=== PATIENT | male | born 1940 | race Caucasian/White ===

== ENCOUNTER 2023-03-03 10:04 | Inpatient (IN) ==
--- NOTE | 2023-03-03 10:07 | DR.DIZZY ---
HPI Time seen Time Seen by Provider: 03/03/23 10:07 HPI Comment HPI Comment: 83 y/o lives him alone found on the floor by son this am; says he fell while going to bathroom and was unable to get up; ems had to come and help him up; he denies pain anywhere; has a lot of dried blood on tongue and around mouth but denies biting tongue and says he pulled scabs off dried lips which caused bleeding; grandson says pt fell against microwave last week and scraped rt forearm; he has not fallen prior to that and generally does well at home alone Context Stroke Symptoms: Weakness of limb PMH PMH Past Medical History: Diabetes Past Surgical History: Yes Surgical History: Ortho Surgery Social History Do you use any recreational Drugs:: No ROS Review of Systems Constitutional: No Symptoms Reported Eyes: No Symptoms Reported ENTM: No Symptoms Reported Respiratoy: No Symptoms Reported Cardiovascular: No Symptoms Reported Gastrointestinal/Abdominal: No Symptoms Reported Genitourinary: No Symptoms Reported Neurological: No Symptoms Reported Musculoskeletal: See HPI Integumentary: See HPI Hematologic/Lymphatic: No Symptoms Reported Endocrine: No Symptoms Reported Psychiatric: No Symptoms Reported PE Vital Signs Vitals: Vital Signs Temperature 98.1 F Pulse Rate 71 Pulse Rate 74 Pulse Rate 74 Pulse Rate 71 Pulse Rate 66 Pulse Rate 73 Pulse Rate 72 Pulse Rate 74 Pulse Rate 74 Pulse Rate 72 Pulse Rate 70 Pulse Rate 74 Pulse Rate 72 Pulse Rate 77 Pulse Rate 75 Pulse Rate 70 Pulse Rate 75 Pulse Rate 78 Pulse Rate 78 Pulse Rate 79 Respiratory Rate 22 Respiratory Rate 23 Respiratory Rate 26 Respiratory Rate 22 Respiratory Rate 17 Respiratory Rate 20 Respiratory Rate 22 Respiratory Rate 26 Respiratory Rate 23 Respiratory Rate 19 Respiratory Rate 30 Respiratory Rate 22 Respiratory Rate 20 Respiratory Rate 25 Respiratory Rate 32 Respiratory Rate 22 Respiratory Rate 44 Respiratory Rate 21 Respiratory Rate 25 Respiratory Rate 18 Blood Pressure 163/79 Blood Pressure 160/84 Blood Pressure 160/80 Blood Pressure 179/104 Blood Pressure 147/86 Blood Pressure 162/86 Blood Pressure 161/87 Blood Pressure 145/82 Blood Pressure 149/86 Blood Pressure 147/81 O2 Sat by Pulse Oximetry 97 O2 Sat by Pulse Oximetry 96 O2 Sat by Pulse Oximetry 97 O2 Sat by Pulse Oximetry 97 O2 Sat by Pulse Oximetry 95 O2 Sat by Pulse Oximetry 95 O2 Sat by Pulse Oximetry 100 O2 Sat by Pulse Oximetry 98 O2 Sat by Pulse Oximetry 99 O2 Sat by Pulse Oximetry 99 O2 Sat by Pulse Oximetry 99 O2 Sat by Pulse Oximetry 97 O2 Sat by Pulse Oximetry 97 O2 Sat by Pulse Oximetry 97 O2 Sat by Pulse Oximetry 98 O2 Sat by Pulse Oximetry 97 O2 Sat by Pulse Oximetry 97 O2 Sat by Pulse Oximetry 96 O2 Sat by Pulse Oximetry 98 03/03/23 11:15 03/03/23 11:30 03/03/23 11:30 Pulse Rate 75 77 Respiratory Rate 32 H 25 H O2 Sat by Pulse Oximetry 98 97 Blood Pressure 162/86 Blood Pressure Mean 115 03/03/23 11:45 03/03/23 12:00 03/03/23 12:00 Pulse Rate 72 74 Respiratory Rate 20 22 O2 Sat by Pulse Oximetry 97 97 Blood Pressure 147/86 Blood Pressure Mean 110 03/03/23 12:15 03/03/23 12:30 03/03/23 12:31 Pulse Rate 70 72 Respiratory Rate 30 H 19 O2 Sat by Pulse Oximetry 99 99 Blood Pressure 179/104 Blood Pressure Mean 135 03/03/23 12:31 03/03/23 12:45 03/03/23 12:52 Pulse Rate 74 74 Respiratory Rate 23 26 H O2 Sat by Pulse Oximetry 99 98 Blood Pressure 160/80 Blood Pressure Mean 114 03/03/23 12:52 03/03/23 13:00 03/03/23 13:00 Pulse Rate 72 73 Respiratory Rate 22 20 O2 Sat by Pulse Oximetry 100 95 Blood Pressure 160/84 Blood Pressure Mean 116 03/03/23 13:15 03/03/23 13:30 03/03/23 13:45 Pulse Rate 66 71 74 Respiratory Rate 17 22 26 H O2 Sat by Pulse Oximetry 95 97 97 Blood Pressure Blood Pressure Mean 03/03/23 14:00 03/03/23 14:00 03/03/23 14:15 Pulse Rate 74 71 Respiratory Rate 23 22 O2 Sat by Pulse Oximetry 96 97 Blood Pressure 163/79 Blood Pressure Mean 113 General Limitations: No Limitations General Appearance: Alert and In No Apparent Distress Head Head Exam: Normal Inspection Eyes Eye exam: Normal Appearance ENT ENT Exam: Normal Exam, Normal Oropharynx and Normal External Ear Exam Neck Neck Exam: Normal Inspection and Full ROM Chest Chest Inspection: Normal Inspection, Symmetric Chest Wall Rise and Other (tender lt lateral chest wall, no crepitus or bruising) Respiratory Respiratory Exam: Normal Lung Sounds Bilat Cardiovascular Cardiovascular Exam: Regular Rate and Normal Rhythm Abdominal Exam Abdominal Exam: Normal Inspection, Normal Bowel Sounds and Soft Rectal Rectal Exam: Deferred Extremeties Extremities Exam: Normal Inspection and Full ROM Back Back Exam: Normal Inspection and Full ROM Neurologic Neurological Exam: Alert and Oriented X3 Psychiatric Psychiatric Exam: Normal Affect and Normal Mood Skin Skin Exam: Warm and Other (slight avulsion to behind tip rt ear with mild bleeding, bloody tongue and lips (dried)) COURSE Consultation Call Returned: 15:00 (Dr Pacheco accepts admission.) ROR Labs Reviewed Laboratory Results Reviewed?: Yes Result Diagrams: 03/03/23 10:03/03/23 10: Laboratory: WBC 5.6 X10^3/uL (3.6-10.0) 03/03/23 10: RBC 3.39 X10^6/uL (4.7-6.0) L 03/03/23 10: Hgb 9.9 g/dL (13.5-18.0) L 03/03/23 10: Hct 28.8 % (42.0-54.0) L 03/03/23 10: MCV 85.0 fL (80.0-100.0) 03/03/23 10: MCH 29.2 pg (27.0-34.0) 03/03/23 10: MCHC 34.4 g/dL (33.0-35.0) 03/03/23 10: RDW 13.9 % (11.6-16.5) 03/03/23 10: Plt Count 240 X10^3/uL (150.0-450.0) 03/03/23 10: MPV 8.0 fL (7.4-11.0) 03/03/23 10: Neut % (Auto) 79.7 % (42.0-75.0) H 03/03/23 10: Lymph % (Auto) 11.9 % (21.0-51.0) L 03/03/23 10: [place] % (Auto) 7.9 % (0.0-13.0) 03/03/23 10: Eos % (Auto) 0.4 % (0.9-2.9) L 03/03/23 10: Baso % (Auto) 0.1 % (0.2-1.0) L 03/03/23 10:27 Neut # (Auto) 4.4 x10^3/uL (2.2-4.8) 03/03/23 10:27 Lymph # (Auto) 0.7 X10^3/uL (1.3-2.9) L 03/03/23 10:27 [place] # (Auto) 0.4 x10^3/uL (0.3-0.8) 03/03/23 10:27 Eos # (Auto) 0.0 x10^3/uL (0.0-0.2) 03/03/23 10:27 Baso # (Auto) 0.0 X10^3/uL (0.0-0.1) 03/03/23 10:27 Absolute Nucleated RBC 0.1 /100WBC 03/03/23 10:27 PT > 100 SECONDS (11.8-14.3) 03/03/23 10:27 INR Target Range - 03/03/23 10:27 INR > 10 (0.8-1.3) H* 03/03/23 10:27 Sodium 139 mmol/L (136-145) 03/03/23 10:27 Corrected Sodium 142 mmol/L (136-145) 03/03/23 10:27 Potassium 4.3 mmol/L (3.5-5.1) 03/03/23 10: Chloride 103 mmol/L (98-107) 03/03/23 10:27 Carbon Dioxide 27.1 mmol/L (21-32) 03/03/23 10:27 BUN 52 mg/dL (7-18) H 03/03/23 10:27 Creatinine 2.44 mg/dL (0.70-1.30) H 03/03/23 10:27 Est GFR (MDRD) Af Amer 33 (>60) L 03/03/23 10:27 Est GFR (MDRD) Non-Af 27 (>60) L 03/03/23 10:27 Glucose 237 mg/dL (65-99) H 03/03/23 10:27 Calcium 8.2 mg/dL (8.5-10.1) L 03/03/23 10:27 Corrected Calcium TNP 03/03/23 10:27 Magnesium 2.2 mg/dL (2.0-2.9) 03/03/23 10:27 Total Bilirubin 0.90 mg/dL (0.2-1.0) 03/03/23 10:27 AST 25 Units/L (15-37) 03/03/23 10:27 ALT 26 Units/L (12-78) 03/03/23 10:27 Alkaline Phosphatase 71 Units/L (46-116) 03/03/23 10:27 Creatine Kinase 312 Units/L (39-308) H 03/03/23 10:27 Total Protein 6.7 g/dL (6.4-8.2) 03/03/23 10: Albumin 3.6 g/dL (3.4-5.0) 03/03/23 10: Globulin 3.1 g/dL (2.5-4.5) 03/03/23 10: Albumin/Globulin Ratio 1.2 Ratio (1.1-2.1) 03/03/23 10:27 Specimen Type Clean catch urine 03/03/23 12:10 Urine Color Pale yellow (YELLOW) 03/03/23 12:10 Urine Appearance Slightly hazy (CLEAR) 03/03/23 12:10 Urine pH 5.0 (5.0 - 8.0) 03/03/23 12:10 Ur Specific [place] 1.020 (1.000-1.030) 03/03/23 12:10 Urine Protein 1+ (NEGATIVE) 03/03/23 12:10 Urine Glucose (UA) Negative (NEGATIVE) 03/03/23 12:10 Urine Ketones 1+ (NEGATIVE) 03/03/23 12:10 Urine Blood 4+ (NEGATIVE) 03/03/23 12:10 Urine Nitrite Negative (NEGATIVE) 03/03/23 12:10 Urine Bilirubin Negative (NEGATIVE) 03/03/23 12:10 Urine Urobilinogen Normal (NORMAL) 03/03/23 12:10 Ur Leukocyte Esterase 2+ (NEGATIVE) 03/03/23 12:10 Urine RBC None seen /HPF (0-3) 03/03/23 12:10 Urine WBC 0-2 /HPF (0-5) 03/03/23 12:10 Ur Squamous Epith Cells Rare /HPF (NEGATIVE) 03/03/23 12:10 Urine Bacteria 2+ /HPF (NEGATIVE) 03/03/23 12:10 Ur Culture Indicated? Yes/culture set up 03/03/23 12:10 Other Results Comments: Coumadin toxicity, falls, cystitis XRAY XRAY Interpreted by: Radiologist X-ray Results: hip xr: 1. Left hip osteoarthrosis. 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 An acute injury is not identified although there is no previous image available to confirm stability of the described findings. pcxr: No acute chest findings. lumbar xr: Fracture T12 vertebra age undetermined. No acute findings identified involving the lumbar vertebrae. Opioid Opioid Risk Tool Age ([place]ucho box if 16-45): No History of Preadolescent Sexual Abuse: No Total: 0 Total Score Risk Category: Low Risk Copyright: Ricardo LOW predicting aberrant behaviors Discharge Plan Diagnosis Discharge Problem: Cystitis, Recurrent falls Coumadin toxicity Qualifiers: Encounter type: initial encounter Injury intent: accidental or unintentional Qualified Code(s): T45.511A - Poisoning by anticoagulants, accidental (unintentional), initial encounter CRF (chronic renal failure) Qualifiers: Chronic kidney disease stage: stage 3 (moderate) Chronic kidney disease stage 3 subtype: stage 3b (GFR 30-44) Qualified Code(s): N18.32 - Chronic kidney disease, stage 3b Discharge Plan Patient Disposition: ADMITTED INPATIENT Condition: Stable Prescriptions: No Action cetirizine 10 mg tablet 1 tab PO QPM lisinopril-hydrochlorothiazide 20-12.5 mg tablet 1 tab PO BID atenolol 25 mg tablet 0.5 tab PO BID amitriptyline 50 mg tablet 1 tab PO QPM levothyroxine 25 mcg tablet 1 tab PO QAM warfarin 5 mg tablet 5 mg PO DIRECTED Rx Instructions: Pt states he takes 5 mg dose on Saturday, Saturday, Saturday and Saturday montelukast 10 mg tablet 1 tab PO QDAY metformin 500 mg tablet extended release 24 hr See Rx Instructions .ROUTE .COMPLEX Rx Instructions: TAKE 2 TABLETS BY MOUTH IN THE MORNING AND 1 TABLET IN THE AFTERNOON fenofibrate nanocrystallized 145 mg tablet 1 tab PO QPM warfarin 2.5 mg Tablet 2.5 mg PO DIRECTED Rx Instructions: Pt states he takes 2.5 mg on Saturday, Saturday and Health Concerns: Post Hospitalization: new medications and changes needed to prevent readmission or further decline. Pt educated and given instructions on all concerns. Plan of Treatment: Continue with present treatment and follow up plan. Pt is to keep follow up appointment as instructed and take medications as ordered. Follow ups/Referrals Follow ups/Referrals: CHAZ JIANG [Primary Care Provider] - 3 days Instructions Instructions: Urinary Tract Infection, Adult, [id number]
[2023-03-03 10:38] VITALS: BMI 26.6
[2023-03-03 10:48] LABS: BASOPHILS % (AUTO) 0.1 % (0.2-1.0); EOSINOPHILS % (AUTO) 0.4 % (0.9-2.9); HEMATOCRIT 28.8 % (42.0-54.0); HEMOGLOBIN 9.9 g/dL (13.5-18.0); LYMPHOCYTES # (AUTO) 0.7 X10^3/uL (1.3-2.9); LYMPHOCYTES % (AUTO) 11.9 % (21.0-51.0); MEAN CORPUSCULAR HEMOGLOBIN 29.2 pg (27.0-34.0); MEAN CORPUSCULAR HGB CONC 34.4 g/dL (33.0-35.0); MONOCYTES # (AUTO) 0.4 x10^3/uL (0.3-0.8); MONOCYTES % (AUTO) 7.9 % (0.0-13.0); NEUTROPHILS # (AUTO) 4.4 x10^3/uL (2.2-4.8); NEUTROPHILS % (AUTO) 79.7 % (42.0-75.0); PLATELET COUNT 240 X10^3/uL (150.0-450.0); RED BLOOD COUNT 3.39 X10^6/uL (4.7-6.0); RED CELL DISTRIBUTION WIDTH 13.9 % (11.6-16.5); WHITE BLOOD COUNT 5.6 X10^3/uL (3.6-10.0)
[2023-03-03 10:58] LABS: ALANINE AMINOTRANSFERASE 26 Units/L (12-78); ALBUMIN 3.6 g/dL (3.4-5.0); ALKALINE PHOSPHATASE 71 Units/L (46-116); ASPARTATE AMINO TRANSFERASE 25 Units/L (15-37); BLOOD UREA NITROGEN 52 mg/dL (7-18); CALCIUM 8.2 mg/dL (8.5-10.1); CARBON DIOXIDE 27.1 mmol/L (21-32); CHLORIDE 103 mmol/L (98-107); COR NA(FOR HYPERGLY) 142 mmol/L (136-145); CREATINE KINASE 312 Units/L (39-308); CREATININE 2.44 mg/dL (0.70-1.30); GLUCOSE 237 mg/dL (65-99); MAGNESIUM 2.2 mg/dL (2.0-2.9); POTASSIUM 4.3 mmol/L (3.5-5.1); SODIUM 139 mmol/L (136-145); TOTAL PROTEIN 6.7 g/dL (6.4-8.2); eGFR NON BLACK RACES 27 (>60)
[2023-03-03 12:16] LABS: BILIRUBIN,URINE NEGATIVE (NEGATIVE); BLOOD/HEMOGLOBIN,URINE 4+ (NEGATIVE); GLUCOSE, URINE NEGATIVE (NEGATIVE); KETONES,URINE 1+ (NEGATIVE); LEUKOCYTE ESTERASE ,URINE 2+ (NEGATIVE); NITRITES,URINE NEGATIVE (NEGATIVE); PROTEIN,URINE 1+ (NEGATIVE); UROBILINOGEN,URINE NORMAL (NORMAL)
[2023-03-03 12:24] LABS: APPEARANCE,URINE SLIGHTLY HAZY (CLEAR); COLOR,URINE PALE YELLOW (YELLOW)
[2023-03-03 12:25] LABS: BACTERIA,URINE 2+ /HPF (NEGATIVE); RBC,URINE NONE SEEN /HPF (0-3); SQUAMOUS EPITHELIAL CELL,UR RARE /HPF (NEGATIVE)
[2023-03-03 12:57] LABS: INR > 10 (0.8-1.3)
[2023-03-03] MEDS ORDERED: MEPHYTON PO ONE (12:58)
[2023-03-03] MEDS ORDERED: ROCEPHIN VIAL 1 GRAM 1 G in NS 100 ML IV 100 ML IV SCH (13:01)
[2023-03-03] MEDS ORDERED: ROCEPHIN VIAL 1 GRAM ONE (13:08)
[2023-03-03] MEDS ORDERED: NS 100 ML IV 100 ML ONE (13:08)
--- NOTE | 2023-03-03 14:26 | RAD ---
HISTORYFellSTUDYPA chestCOMPARISONNoneFINDINGSHeart size normal with clear lungs well inflated. There is no infiltrate, pneumothorax or pleural fluid.IMPRESSIONNo acute chest findings.Electronically signed by: RIGO HURT (Mar 03, 2023 14:26:15)
--- NOTE | 2023-03-03 14:28 | RAD ---
HISTORYFellSTUDYLumbar spine three viewsCOMPARISONNoneFINDINGSModerate osteopenia. Compression fracture deformity of T12 vertebra without bone destruction or displacement. The lumbar segments are relatively normal without evidence for recent injury, or osteolytic involvement.IMPRESSIONFracture T12 vertebra age undetermined. No acute findings identified involving the lumbar vertebrae.Electronically signed by: RIGO HURT (Mar 03, 2023 14:27:51)
--- NOTE | 2023-03-03 14:31 | RAD ---
HISTORYFellSTUDYBilateral hips five viewsCOMPARISONNoneFINDINGSLeft hip: Concentric narrowing joint space without evidence for fracture, dislocation or femoral head deformity.Right hip: Arthroplasty components are present with additional surgical screw-plate fixation hardware in the acetabulum and right hemipelvis. Nonacute bony fragmentation and heterotopic bone are noted around the joint. No recent fracture is identified.IMPRESSION1. Left hip osteoarthrosis.2. 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 An acute injury is not identified although there is no previous image available to confirm stability of the described findings.Electronically signed by: RIGO HURT (Mar 03, 2023 14:30:08)
[2023-03-03] MEDS: ROCEPHIN VIAL 1 GRAM 1 G in NS 100 ML IV 100 ML IV SCH (15:01)
[2023-03-03] MEDS ORDERED: NS 1,000 ML IV 1,000 ML ONE (15:16)
[2023-03-03] MEDS: NS 1,000 ML IV 1,000 ML IV SCH (15:20)
[2023-03-03] MEDS: NovoLIN R (or HumuLIN R) SUBCUT PRN (18:09)
[2023-03-03] MEDS: SNACK - Diabetic Appropriate PO SCH (20:38)
[2023-03-04 05:23] LABS: BASOPHILS % (AUTO) 0.2 % (0.2-1.0); HEMATOCRIT 20.8 % (42.0-54.0); LYMPHOCYTES # (AUTO) 1.1 X10^3/uL (1.3-2.9); LYMPHOCYTES % (AUTO) 16.2 % (21.0-51.0); MEAN CORPUSCULAR HEMOGLOBIN 29.7 pg (27.0-34.0); MEAN CORPUSCULAR HGB CONC 35.1 g/dL (33.0-35.0); MEAN CORPUSCULAR VOLUME 84.6 fL (80.0-100.0); MEAN PLATELET VOLUME 8.2 fL (7.4-11.0); MONOCYTES # (AUTO) 0.5 x10^3/uL (0.3-0.8); MONOCYTES % (AUTO) 8.3 % (0.0-13.0); NEUTROPHILS % (AUTO) 75.3 % (42.0-75.0); PLATELET COUNT 261 X10^3/uL (150.0-450.0); RED BLOOD COUNT 2.46 X10^6/uL (4.7-6.0); RED CELL DISTRIBUTION WIDTH 14.4 % (11.6-16.5); WHITE BLOOD COUNT 6.6 X10^3/uL (3.6-10.0)
[2023-03-04 05:28] LABS: HEMOGLOBIN 7.3 g/dL (13.5-18.0)
[2023-03-04 05:42] LABS: ALBUMIN 2.8 g/dL (3.4-5.0); CALCIUM 7.8 mg/dL (8.5-10.1); CARBON DIOXIDE 23.7 mmol/L (21-32); COR CA(FOR HYPOALB) 8.8 mg/dL (8.5-10.1); CREATININE 2.28 mg/dL (0.70-1.30); POTASSIUM 4.4 mmol/L (3.5-5.1); TOTAL PROTEIN 5.5 g/dL (6.4-8.2)
[2023-03-04] MEDS: NS 1,000 ML IV 1,000 ML IV SCH ×2 (06:05→18:32)
[2023-03-04 06:21] LABS: INR > 10 (0.8-1.3)
--- NOTE | 2023-03-04 06:25 | RAD ---
HISTORYFall, right elbow swellingSTUDYRight elbow three viewsCOMPARISONNoneFINDINGSThere is no evidence for fracture, lytic, or blastic lesion. No joint erosion or joint effusion is identified. No periarticular soft tissue swelling identified.IMPRESSIONNo significant abnormality identifiedElectronically signed by: SHELIA VERDE (Mar 04, 2023 06:24:14)
[2023-03-04] MEDS ORDERED: AQUA-MEPHYTON ADULT INJ SC ONE (08:10)
[2023-03-04] MEDS: ROCEPHIN VIAL 1 GRAM 1 G in NS 100 ML IV 100 ML IV SCH (08:48)
[2023-03-04] MEDS: NovoLIN R (or HumuLIN R) SUBCUT PRN ×3 (11:37→22:06)
--- NOTE | 2023-03-04 14:35 | DR.H&P ---
H&P History & Physical for Day of: H&P Date: 03/04/23 Chief Complaint Chief Complaint: Falling Allergies Allergies Allergy/AdvReac Type Severity Reaction Status Date / Time No Known Drug Allergies Allergy Verified 05/05/19 11:26 History of Present Illness History of Present Illness: And again to emergency department they checked his INR and it was greater than 10 and he received 5 mg of AquaMEPHYTON. This is a pleasant 83-year-old white male who is brought to the emergency department yesterday after his family found him at home floor. They report he has been falling a lot lately and also takes Coumadin and has multiple bruises all over him at this time. Patient does not know why he is taking Coumadin. However he does report a history of blood clots in his lower extremities. X-rays were also done of his left hip that showed left hip osteoarthrosis and history of left hip replacement. There was no acute injury. Lumbar x-ray was also taken and showed a fracture of T12 vertebra age undetermined though. There were no acute findings identified involving the lumbar vertebra. Patient also has history of stage III chronic kidney disease as well. I discussed the patient's welfare at home and explained to the daughter that he is high risk because of his falling for intracranial bleed or breaking a hip. She understands this and we were able to talk him into [facility] and we will get started on that once we get his INR therapeutic and make sure his hemoglobin is stable since that has trended down since coming in yesterday. We also found the patient had a UTI when he was started on Rocephin as well. Past Medical History Past Medical History: Diabetes Past Surgical History Surgical History: Ortho Surgery Social History Does patient currently use any type of tobacco product: No Have you used tobacco products in the last 12 months: No Type of Tobacco Use: None Does any household member use tobacco: No Alcohol Use: None Drug Use: None Medications Home Medications: Home Medications Medication Instructions Recorded Confirmed Type amitriptyline 50 mg tablet 1 tab PO QPM 03/03/23 03/03/23 History atenolol 25 mg tablet 0.5 tab PO BID 03/03/23 03/03/23 History cetirizine 10 mg tablet 1 tab PO QPM 03/03/23 03/03/23 History fenofibrate nanocrystallized 145 1 tab PO QPM 03/03/23 03/03/23 History mg tablet levothyroxine 25 mcg tablet 1 tab PO QAM disorder of thyroid 03/03/23 03/03/23 History gland lisinopril 20 1 tab PO BID 03/03/23 03/03/23 History mg-hydrochlorothiazide 12.5 mg tablet metformin 500 mg tablet,extended 1,000 mg PO DAILY 03/03/23 03/03/23 History release 24 hr metformin 500 mg tablet,extended 500 mg PO HS 03/03/23 03/03/23 History release 24 hr montelukast 10 mg tablet 1 tab PO QDAY 03/03/23 03/03/23 History warfarin 2.5 mg tablet 2.5 mg PO DIRECTED 03/03/23 03/03/23 History warfarin 5 mg tablet 5 mg PO DAILY 03/03/23 03/03/23 History Labs Result Diagrams: 03/04/23 04:58 03/04/23 04:58 Labs: 03/03/23 12:10 Urine,Catheterized Urine Culture - Preliminary Laboratory WBC 6.6 X10^3/uL (3.6-10.0) 03/04/23 04:58 RBC 2.46 X10^6/uL (4.7-6.0) L 03/04/23 04:58 Hgb 7.3 g/dL (13.5-18.0) L D 03/04/23 04:58 Hct 20.8 % (42.0-54.0) L 03/04/23 04:58 MCV 84.6 fL (80.0-100.0) 03/04/23 04:58 MCH 29.7 pg (27.0-34.0) 03/04/23 04:58 MCHC 35.1 g/dL (33.0-35.0) H 03/04/23 04:58 RDW 14.4 % (11.6-16.5) 03/04/23 04:58 Plt Count 261 X10^3/uL (150.0-450.0) 03/04/23 04:58 MPV 8.2 fL (7.4-11.0) 03/04/23 04:58 Neut % (Auto) 75.3 % (42.0-75.0) H 03/04/23 04:58 Lymph % (Auto) 16.2 % (21.0-51.0) L 03/04/23 04:58 [place] % (Auto) 8.3 % (0.0-13.0) 03/04/23 04:58 Eos % (Auto) 0.0 % (0.9-2.9) L 03/04/23 04:58 Baso % (Auto) 0.2 % (0.2-1.0) 03/04/23 04:58 Neut # (Auto) 5.0 x10^3/uL (2.2-4.8) H 03/04/23 04:58 Lymph # (Auto) 1.1 X10^3/uL (1.3-2.9) L 03/04/23 04:58 [place] # (Auto) 0.5 x10^3/uL (0.3-0.8) 03/04/23 04:58 Eos # (Auto) 0.0 x10^3/uL (0.0-0.2) 03/04/23 04:58 Baso # (Auto) 0.0 X10^3/uL (0.0-0.1) 03/04/23 04:58 Absolute Nucleated RBC 0.0 /100WBC 03/04/23 04:58 PT > 100 SECONDS (11.8-14.3) 03/04/23 04:58 INR Target Range - 03/04/23 04:58 INR > 10 (0.8-1.3) H* 03/04/23 04:58 Sodium 139 mmol/L (136-145) 03/04/23 04:58 Corrected Sodium 143 mmol/L (136-145) 03/04/23 04:58 Potassium 4.4 mmol/L (3.5-5.1) 03/04/23 04:58 Chloride 105 mmol/L (98-107) 03/04/23 04:58 Carbon Dioxide 23.7 mmol/L (21-32) 03/04/23 04:58 BUN 55 mg/dL (7-18) H 03/04/23 04:58 Creatinine 2.28 mg/dL (0.70-1.30) H 03/04/23 04:58 Est GFR (MDRD) Af Amer 36 (>60) L 03/04/23 04:58 Est GFR (MDRD) Non-Af 29 (>60) L 03/04/23 04:58 Glucose 261 mg/dL (65-99) H 03/04/23 04:58 POC Glucose (mg/dL) 314 mg/dL (65-99) H 03/04/23 11:27 Calcium 7.8 mg/dL (8.5-10.1) L 03/04/23 04:58 Corrected Calcium 8.8 mg/dL (8.5-10.1) 03/04/23 04:58 Magnesium 2.2 mg/dL (2.0-2.9) 03/03/23 10:27 Total Bilirubin 0.90 mg/dL (0.2-1.0) 03/04/23 04:58 AST 25 Units/L (15-37) 03/04/23 04:58 ALT 24 Units/L (12-78) 03/04/23 04:58 Alkaline Phosphatase 57 Units/L (46-116) 03/04/23 04:58 Creatine Kinase 312 Units/L (39-308) H 03/03/23 10:27 Total Protein 5.5 g/dL (6.4-8.2) L 03/04/23 04:58 Albumin 2.8 g/dL (3.4-5.0) L 03/04/23 04:58 Globulin 2.7 g/dL (2.5-4.5) 03/04/23 04:58 Albumin/Globulin Ratio 1.0 Ratio (1.1-2.1) L 03/04/23 04:58 Specimen Type Clean catch urine 03/03/23 12:10 Urine Color Pale yellow (YELLOW) 03/03/23 12:10 Urine Appearance Slightly hazy (CLEAR) 03/03/23 12:10 Urine pH 5.0 (5.0 - 8.0) 03/03/23 12:10 Ur Specific [place] 1.020 (1.000-1.030) 03/03/23 12:10 Urine Protein 1+ (NEGATIVE) 03/03/23 12:10 Urine Glucose (UA) Negative (NEGATIVE) 03/03/23 12:10 Urine Ketones 1+ (NEGATIVE) 03/03/23 12:10 Urine Blood 4+ (NEGATIVE) 03/03/23 12:10 Urine Nitrite Negative (NEGATIVE) 03/03/23 12:10 Urine Bilirubin Negative (NEGATIVE) 03/03/23 12:10 Urine Urobilinogen Normal (NORMAL) 03/03/23 12:10 Ur Leukocyte Esterase 2+ (NEGATIVE) 03/03/23 12:10 Urine RBC None seen /HPF (0-3) 03/03/23 12:10 Urine WBC 0-2 /HPF (0-5) 03/03/23 12:10 Ur Squamous Epith Cells Rare /HPF (NEGATIVE) 03/03/23 12:10 Urine Bacteria 2+ /HPF (NEGATIVE) 03/03/23 12:10 Ur Culture Indicated? Yes/culture set up 03/03/23 12:10 Review of Systems Constitutional: Weakness Eyes: No Symptoms Reported ENT: No Symptoms Reported Respiratory: No Symptoms Reported Cardiovascular: No Symptoms Reported Gastrointestinal: No Symptoms Reported Genitourinary: No Symptoms Reported Musculoskeletal: Arm Pain, Back Pain and Leg Pain Skin: Bruising and Ecchymosis Neurological: Weakness and Incoordination Physical Exam Vital Signs: Vital Signs Temperature 98.3 F Temperature 97.7 F Pulse Rate [Right Radial] 114 Pulse Rate [Right Radial] 102 Respiratory Rate 20 Respiratory Rate 20 Blood Pressure [Right Arm] 104/54 Blood Pressure [Right Arm] 99/57 O2 Sat by Pulse Oximetry 100 O2 Sat by Pulse Oximetry 99 03/04/23 12:00 Temperature 98.3 F Temperature Source Oral Pulse Rate [Right Radial] 114 H Pulse Assessment Method [Right Radial] Dinamap Respiratory Rate 20 O2 Sat by Pulse Oximetry 100 Blood Pressure [Right Arm] 104/54 Blood Pressure Mean [Right Arm] 70 Blood Pressure Source [Right Arm] Automatic Cuff Blood Pressure Position [Right Arm] Semi Smith's Oriented: Normal, Time, Person and Place Eyes: Normal Ear: Normal Nose: Normal Throat: Normal Respiratory: Clear Throughout Cardiovascular: Normal Auscultation: Bowel Sounds: Normal Palpation: Normal Tenderness: Normal Skin: Bruising and Ecchymosis Musculoskeletal: Normal Psychiatric: Normal Mood Description: Calm Affect: Normal Speech Pattern: Clear and Appropriate Assessment/Plan (1) Dehydration: Status: Acute Plan: IV hydration. (2) CRF (chronic renal failure): Qualifiers: Chronic kidney disease stage: stage 3 (moderate) Chronic kidney disease stage 3 subtype: stage 3b (GFR 30-44) Qualified Code(s): N18.32 - Chronic kidney disease, stage 3b Status: Acute Plan: Discontinue metformin at this time. (3) Coumadin toxicity: Qualifiers: Encounter type: initial encounter Injury intent: accidental or unintentional Qualified Code(s): T45.511A - Poisoning by anticoagulants, accidental (unintentional), initial encounter Status: Acute Plan: AquaMEPHYTON was given in the emergency department last night and since his INR was still greater than 10 today I gave him another 5 mg AquaMEPHYTON today. (4) Cystitis: Status: Acute Plan: IV Rocephin. Follow-up with culture when available. (5) Recurrent falls: Status: Acute Plan: Will start working on getting the patient into temporary rehab and physical therapy and able to get strong enough to go home. Patient refuses prison placement at this time. (6) Diabetes mellitus type 2 in nonobese: Status: Acute Plan: Sliding scale insulin per protocol.
[2023-03-04 15:27] LABS: HEMATOCRIT 18.1 % (42.0-54.0); HEMOGLOBIN 6.3 g/dL (13.5-18.0)
[2023-03-04] MEDS ORDERED: TYLENOL 325 MG TAB PO ONE ×2 (17:04→19:38)
[2023-03-04] MEDS ORDERED: BENADRYL INJ 50 MG VIAL IVP ONE (17:05)
[2023-03-04] MEDS ORDERED: BENADRYL INJ 50 MG VIAL ONE (19:38)
[2023-03-04] MEDS ORDERED: NS 250 ML IV 250 ML IV ONE (20:00)
[2023-03-04] MEDS: SNACK - Diabetic Appropriate PO SCH (22:34)
[2023-03-04 22:50] LABS: HEMOGLOBIN 5.6 g/dL (13.5-18.0)
[2023-03-04] MEDS: PROTONIX INJ 40 MG VIAL IVP SCH (22:57)
[2023-03-04 22:59] LABS: INR 5.06 (0.8-1.3)
[2023-03-05 07:33] LABS: BASOPHILS % (AUTO) 0.2 % (0.2-1.0); LYMPHOCYTES # (AUTO) 0.8 X10^3/uL (1.3-2.9); MEAN CORPUSCULAR HEMOGLOBIN 29.6 pg (27.0-34.0); MONOCYTES # (AUTO) 0.5 x10^3/uL (0.3-0.8); NEUTROPHILS # (AUTO) 3.4 x10^3/uL (2.2-4.8); WHITE BLOOD COUNT 4.8 X10^3/uL (3.6-10.0)
[2023-03-05 07:39] LABS: EOSINOPHILS % (AUTO) 0.8 % (0.9-2.9); LYMPHOCYTES % (AUTO) 15.9 % (21.0-51.0); MEAN CORPUSCULAR HGB CONC 34.4 g/dL (33.0-35.0); MEAN CORPUSCULAR VOLUME 85.9 fL (80.0-100.0); MEAN PLATELET VOLUME 7.8 fL (7.4-11.0); MONOCYTES % (AUTO) 11.1 % (0.0-13.0); PLATELET COUNT 228 X10^3/uL (150.0-450.0); RED BLOOD COUNT 1.55 X10^6/uL (4.7-6.0); RED CELL DISTRIBUTION WIDTH 14.2 % (11.6-16.5)
[2023-03-05 07:41] LABS: HEMOGLOBIN 4.6 g/dL (13.5-18.0)
[2023-03-05 07:42] LABS: HEMATOCRIT 13.3 % (42.0-54.0)
[2023-03-05 07:45] LABS: ALBUMIN 2.5 g/dL (3.4-5.0); CALCIUM 7.4 mg/dL (8.5-10.1); COR CA(FOR HYPOALB) 8.6 mg/dL (8.5-10.1); CREATININE 2.48 mg/dL (0.70-1.30); POTASSIUM 4.1 mmol/L (3.5-5.1)
[2023-03-05 07:57] LABS: INR 4.97 (0.8-1.3)
[2023-03-05] MEDS: ROCEPHIN VIAL 1 GRAM 1 G in NS 100 ML IV 100 ML IV SCH (08:31)
[2023-03-05] MEDS: SYNTHROID 25 mcg TAB PO SCH (08:31)
[2023-03-05] MEDS: PROTONIX INJ 40 MG VIAL IVP SCH (08:31)
[2023-03-05] MEDS: NS 1,000 ML IV 1,000 ML IV SCH ×2 (11:11→19:00)
[2023-03-05] MEDS: SNACK - Diabetic Appropriate PO SCH (20:04)
[2023-03-05] MEDS: NovoLIN R (or HumuLIN R) SUBCUT PRN (20:52)
[2023-03-05] MEDS ORDERED: BENADRYL INJ 50 MG VIAL IVP ONE (23:37)
[2023-03-05] MEDS ORDERED: TYLENOL 325 MG TAB PO ONE (23:37)
[2023-03-06] MEDS: NS 1,000 ML IV 1,000 ML IV SCH ×3 (06:23→22:00)
[2023-03-06 06:39] LABS: BASOPHILS % (AUTO) 0.7 % (0.2-1.0); EOSINOPHILS # (AUTO) 0.1 x10^3/uL (0.0-0.2); EOSINOPHILS % (AUTO) 1.5 % (0.9-2.9); LYMPHOCYTES # (AUTO) 0.9 X10^3/uL (1.3-2.9); LYMPHOCYTES % (AUTO) 15.5 % (21.0-51.0); MEAN CORPUSCULAR HEMOGLOBIN 31.6 pg (27.0-34.0); MEAN CORPUSCULAR VOLUME 90.3 fL (80.0-100.0); MEAN PLATELET VOLUME 7.6 fL (7.4-11.0); MONOCYTES # (AUTO) 0.5 x10^3/uL (0.3-0.8); MONOCYTES % (AUTO) 9.8 % (0.0-13.0); NEUTROPHILS % (AUTO) 72.5 % (42.0-75.0); PLATELET COUNT 211 X10^3/uL (150.0-450.0); RED BLOOD COUNT 2.33 X10^6/uL (4.7-6.0); RED CELL DISTRIBUTION WIDTH 14.9 % (11.6-16.5); WHITE BLOOD COUNT 5.6 X10^3/uL (3.6-10.0)
[2023-03-06 06:41] LABS: HEMOGLOBIN 7.3 g/dL (13.5-18.0)
[2023-03-06 07:04] LABS: ALBUMIN 2.5 g/dL (3.4-5.0); CALCIUM 7.3 mg/dL (8.5-10.1); CARBON DIOXIDE 23.8 mmol/L (21-32); COR CA(FOR HYPOALB) 8.5 mg/dL (8.5-10.1); CREATININE 1.99 mg/dL (0.70-1.30); POTASSIUM 3.9 mmol/L (3.5-5.1); TOTAL PROTEIN 5.1 g/dL (6.4-8.2)
--- NOTE | 2023-03-06 07:39 | PCM.PROG ---
Progress Note Progress Note for Day of Date of Exam: 03/05/23 Subjective Subjective: Patient's hemoglobin has dropped to 4.6. Units of packed red cells were ordered currently we are still waiting on it. I did give him a unit of FFP last night. I will also give him another 1 this morning. His INR is down to 4.97 this morning. I discussed custodial placement with him for temporary rehab and he is in agreement with that. I will go ahead and order an additional 2 units packed red blood cells repeat INR in the morning. Past Medical Family Social History Allergies: Allergies No Known Drug Allergies Allergy (Verified 05/05/19 11:26) Review of Systems ROS: No change since H&P Vital Signs and I&O's Vital Signs: Vital Signs Temperature 97.9 F Temperature 98.8 F Pulse Rate [Right Radial] 88 Pulse Rate [Right Radial] 121 Respiratory Rate 18 Respiratory Rate 20 Respiratory Rate 18 Respiratory Rate 20 Blood Pressure [Right Arm] 140/69 Blood Pressure [Right Arm] 154/73 O2 Sat by Pulse Oximetry 100 O2 Sat by Pulse Oximetry 94 03/06/23 04:07 03/06/23 04:00 03/06/23 05:07 Temperature 97.9 F Temperature Source Oral Pulse Rate [Right Radial] 88 Pulse Assessment Method [Right Radial] Dinamap Respiratory Rate 18 O2 Sat by Pulse Oximetry 100 Blood Pressure [Right Arm] 140/69 Blood Pressure Mean [Right Arm] 92 Blood Pressure Source [Right Arm] Automatic Cuff Blood Pressure Position [Right Arm] Semi Smith's B.P. 136/70 139/67 TEMP 98.6 F 98.4 F Respiration Rate 18 20 PULSE 136 82 Sp02 Percentage 99 98 Weight 03/06/23 05:46 03/06/23 05:50 03/06/23 06:25 Temperature Temperature Source Pulse Rate [Right Radial] Pulse Assessment Method [Right Radial] Respiratory Rate O2 Sat by Pulse Oximetry Blood Pressure [Right Arm] Blood Pressure Mean [Right Arm] Blood Pressure Source [Right Arm] Blood Pressure Position [Right Arm] B.P. 131/62 TEMP 98.7 F Respiration Rate 18 PULSE 104 Sp02 Percentage 99 Weight 159 lb 9.835 oz 160 lb 4.417 oz Intake and Output: Intake & Output 06/25/23 06/26/23 06/27/23 06/28/23 11:59 11:59 11:59 11:59 Intake Total 820 / 820 2808 / 2808 3521 / 3521 Output Total 250 / 250 201 / 201 200 / 200 Balance 570 / 570 2607 / 2607 3321 / 3321 Physical Exam Oriented: Normal, Time, Person and Place Eyes: Normal Ear: Normal Nose: Normal Throat: Normal Respiratory: Normal Cardiovascular: Normal Auscultation: Bowel Sounds: Normal Tenderness: Normal Skin: Bruising and Ecchymosis Musculoskeletal: Normal Psychiatric: Normal Mood Description: Calm Affect: Normal Speech Pattern: Clear Laboratory and Diagnostics Result Diagrams: 03/06/23 06:28 03/06/23 06:28 Labs: 03/03/23 12:10 Urine,Catheterized Urine Culture - Final Escherichia Coli Laboratory WBC 5.6 X10^3/uL (3.6-10.0) 03/06/23 06: RBC 2.33 X10^6/uL (4.7-6.0) L 03/06/23 06: Hgb 7.3 g/dL (13.5-18.0) L D 03/06/23 06:28 Hct 21.0 % (42.0-54.0) L 03/06/23 06: MCV 90.3 fL (80.0-100.0) 03/06/23 06: MCH 31.6 pg (27.0-34.0) 03/06/23 06: MCHC 35.0 g/dL (33.0-35.0) 03/06/23 06: RDW 14.9 % (11.6-16.5) 03/06/23 06: Plt Count 211 X10^3/uL (150.0-450.0) 03/06/23 06: MPV 7.6 fL (7.4-11.0) 03/06/23 06: Neut % (Auto) 72.5 % (42.0-75.0) 03/06/23 06: Lymph % (Auto) 15.5 % (21.0-51.0) L 03/06/23 06: [place] % (Auto) 9.8 % (0.0-13.0) 03/06/23 06: Eos % (Auto) 1.5 % (0.9-2.9) 03/06/23 06: Baso % (Auto) 0.7 % (0.2-1.0) 03/06/23 06: Neut # (Auto) 4.0 x10^3/uL (2.2-4.8) 03/06/23 06: Lymph # (Auto) 0.9 X10^3/uL (1.3-2.9) L 03/06/23 06: [place] # (Auto) 0.5 x10^3/uL (0.3-0.8) 03/06/23 06: Eos # (Auto) 0.1 x10^3/uL (0.0-0.2) 03/06/23 06: Baso # (Auto) 0.0 X10^3/uL (0.0-0.1) 03/06/23 06: Absolute Nucleated RBC 0.0 /100WBC 03/06/23 06: PT 45.5 SECONDS (11.8-14.3) 03/05/23 07:20 INR Target Range - 03/05/23 07:20 INR 4.97 (0.8-1.3) H* 03/05/23 07:20 Sodium 142 mmol/L (136-145) 03/06/23 06:28 Corrected Sodium 143 mmol/L (136-145) 03/06/23 06:28 Potassium 3.9 mmol/L (3.5-5.1) 03/06/23 06:28 Chloride 109 mmol/L (98-107) H 03/06/23 06:28 Carbon Dioxide 23.8 mmol/L (21-32) 03/06/23 06:28 BUN 48 mg/dL (7-18) H 03/06/23 06:28 Creatinine 1.99 mg/dL (0.70-1.30) H 03/06/23 06:28 Est GFR (MDRD) Af Amer 42 (>60) L 03/06/23 06:28 Est GFR (MDRD) Non-Af 34 (>60) L 03/06/23 06:28 Glucose 160 mg/dL (65-99) H 03/06/23 06:28 POC Glucose (mg/dL) 147 mg/dL (65-99) H 03/06/23 05:10 Calcium 7.3 mg/dL (8.5-10.1) L 03/06/23 06:28 Corrected Calcium 8.5 mg/dL (8.5-10.1) 03/06/23 06: Magnesium 2.2 mg/dL (2.0-2.9) 03/03/23 10:27 Total Bilirubin 1.60 mg/dL (0.2-1.0) H 03/06/23 06:28 AST 32 Units/L (15-37) 03/06/23 06:28 ALT 26 Units/L (12-78) 03/06/23 06: Alkaline Phosphatase 54 Units/L (46-116) 03/06/23 06: Creatine Kinase 312 Units/L (39-308) H 03/03/23 10:27 Total Protein 5.1 g/dL (6.4-8.2) L 03/06/23 06: Albumin 2.5 g/dL (3.4-5.0) L 03/06/23 06: Globulin 2.6 g/dL (2.5-4.5) 03/06/23 06: Albumin/Globulin Ratio 1.0 Ratio (1.1-2.1) L 03/06/23 06:28 Specimen Type Clean catch urine 03/03/23 12:10 Urine Color Pale yellow (YELLOW) 03/03/23 12:10 Urine Appearance Slightly hazy (CLEAR) 03/03/23 12:10 Urine pH 5.0 (5.0 - 8.0) 03/03/23 12:10 Ur Specific [place] 1.020 (1.000-1.030) 03/03/23 12:10 Urine Protein 1+ (NEGATIVE) 03/03/23 12:10 Urine Glucose (UA) Negative (NEGATIVE) 03/03/23 12:10 Urine Ketones 1+ (NEGATIVE) 03/03/23 12:10 Urine Blood 4+ (NEGATIVE) 03/03/23 12:10 Urine Nitrite Negative (NEGATIVE) 03/03/23 12:10 Urine Bilirubin Negative (NEGATIVE) 03/03/23 12:10 Urine Urobilinogen Normal (NORMAL) 03/03/23 12:10 Ur Leukocyte Esterase 2+ (NEGATIVE) 03/03/23 12:10 Urine RBC None seen /HPF (0-3) 03/03/23 12:10 Urine WBC 0-2 /HPF (0-5) 03/03/23 12:10 Ur Squamous Epith Cells Rare /HPF (NEGATIVE) 03/03/23 12:10 Urine Bacteria 2+ /HPF (NEGATIVE) 03/03/23 12:10 Ur Culture Indicated? Yes/culture set up 03/03/23 12:10 Blood Type A POSITIVE 03/04/23 16:00 Blood Type A POSITIVE 03/04/23 16:00 Antibody Screen Positive 03/04/23 16:00 Antibody Identification Anti-K 03/04/23 16:00 Crossmatch See Detail 03/04/23 16:00 Radiology Reviewed: Yes Plan (1) Dehydration: Status: Acute Narrative Support Text: Much improved. Plan: IV hydration. (2) CRF (chronic renal failure): Status: Acute Qualifiers: Chronic kidney disease stage: stage 3 (moderate) Chronic kidney disease stage 3 subtype: stage 3b (GFR 30-44) Qualified Code(s): N18.32 - Chronic kidney disease, stage 3b Narrative Support Text: Improved since admission. Plan: Discontinue metformin at this time. (3) Coumadin toxicity: Status: Acute Qualifiers: Encounter type: initial encounter Injury intent: accidental or unintentional Qualified Code(s): T45.511A - Poisoning by anticoagulants, accidental (unintentional), initial encounter Narrative Support Text: Improving still. Plan: AquaMEPHYTON was given in the emergency department last night and since his INR was still greater than 10 today I gave him another 5 mg Aqu aMEPHYTON today. (4) Cystitis: Status: Acute Plan: IV Rocephin. Follow-up with culture when available. (5) Recurrent falls: Status: Acute Plan: Will start working on getting the patient into temporary rehab and physical therapy and able to get strong enough to go home. Patient refuses custodial placement at this time. (6) Diabetes mellitus type 2 in nonobese: Status: Acute Plan: Sliding scale insulin per protocol.
[2023-03-06 08:42] LABS: INR 3.11 (0.8-1.3)
[2023-03-06] MEDS: ROCEPHIN VIAL 1 GRAM 1 G in NS 100 ML IV 100 ML IV SCH (09:00)
[2023-03-06] MEDS: PROTONIX INJ 40 MG VIAL IVP SCH (09:00)
[2023-03-06] MEDS: MICRO K EXTEN CAP 10 MEQ PO SCH (09:00)
[2023-03-06] MEDS: SYNTHROID 25 mcg TAB PO SCH (09:00)
[2023-03-06] MEDS: MILK OF MAGNESIA PO SCH ×2 (09:02→20:36)
[2023-03-06] MEDS ORDERED: NS 250 ML IV 250 ML IV ONE (11:09)
[2023-03-06] MEDS: DIABETA PO SCH (14:19)
--- NOTE | 2023-03-06 14:34 | PCM.PROG ---
Progress Note Progress Note for Day of Date of Exam: 03/06/23 Subjective Subjective: Patient is feeling much better this morning. His hemoglobin is up to 7.3 today. He has received 2 units packed red blood cells. Vital signs are stable at this time. His INR is down to 3.11 as well. We have found him a inpatient physical therapy rehab of the local residential and once we find his blood count is stable and that he is feeling better we will plan on discharging him to the inpatient rehab in the next 1 to 2 days. Past Medical Family Social History Allergies: Allergies No Known Drug Allergies Allergy (Verified 05/05/19 11:26) Review of Systems ROS: No change since H&P Vital Signs and I&O's Vital Signs: Vital Signs Temperature 98.9 F Temperature 98.4 F Pulse Rate [Right Radial] 92 Pulse Rate [Right Radial] 100 Respiratory Rate 18 Respiratory Rate 18 Blood Pressure [Right Arm] 148/76 Blood Pressure [Right Arm] 143/77 O2 Sat by Pulse Oximetry 100 O2 Sat by Pulse Oximetry 92 03/06/23 11:25 03/06/23 11:40 03/06/23 12:00 Temperature 98.9 F Temperature Source Oral Pulse Rate [Right Radial] 92 H Respiratory Rate 18 O2 Sat by Pulse Oximetry 100 Blood Pressure [Right Arm] 148/76 Blood Pressure Mean [Right Arm] 100 Blood Pressure Source [Right Arm] Automatic Cuff B.P. 135/71 148/76 TEMP 98.5 F 98.9 F Respiration Rate 17 18 PULSE 97 92 Sp02 Percentage 94 100 Intake and Output: Intake & Output 03/04/23 03/05/23 03/06/23 03/07/23 11:59 11:59 11:59 11:59 Intake Total 820 / 820 2808 / 2808 3521 / 3521 Output Total 250 / 250 201 / 201 200 / 200 Balance 570 / 570 2607 / 2607 3321 / 3321 Physical Exam Oriented: Normal, Time, Person and Place Eyes: Normal Ear: Normal Nose: Normal Throat: Normal Respiratory: Normal Cardiovascular: Normal Auscultation: Bowel Sounds: Normal Tenderness: Normal Skin: Bruising and Ecchymosis Musculoskeletal: Normal Psychiatric: Normal Mood Description: Calm Affect: Normal Speech Pattern: Clear Laboratory and Diagnostics Result Diagrams: 03/06/23 06:28 03/06/23 06:28 Labs: 03/03/23 12:10 Urine,Catheterized Urine Culture - Final Escherichia Coli Laboratory WBC 5.6 X10^3/uL (3.6-10.0) 03/06/23 06: RBC 2.33 X10^6/uL (4.7-6.0) L 03/06/23 06: Hgb 7.3 g/dL (13.5-18.0) L D 03/06/23 06: Hct 21.0 % (42.0-54.0) L 03/06/23 06: MCV 90.3 fL (80.0-100.0) 03/06/23 06: MCH 31.6 pg (27.0-34.0) 03/06/23 06: MCHC 35.0 g/dL (33.0-35.0) 03/06/23: RDW 14.9 % (11.6-16.5) 03/06/23: Plt Count 211 X10^3/uL (150.0-450.0) 03/06/23 06: MPV 7.6 fL (7.4-11.0) 03/06/23 06: Neut % (Auto) 72.5 % (42.0-75.0) 03/06/23 06: Lymph % (Auto) 15.5 % (21.0-51.0) L 03/06/23: [place] % (Auto) 9.8 % (0.0-13.0) 03/06/23: Eos % (Auto) 1.5 % (0.9-2.9) 03/06/23: Baso % (Auto) 0.7 % (0.2-1.0) 03/06/23: Neut # (Auto) 4.0 x10^3/uL (2.2-4.8) 03/06/23: Lymph # (Auto) 0.9 X10^3/uL (1.3-2.9) L 03/06/23 06:28 [place] # (Auto) 0.5 x10^3/uL (0.3-0.8) 03/06/23 06: Eos # (Auto) 0.1 x10^3/uL (0.0-0.2) 03/06/23 06:28 Baso # (Auto) 0.0 X10^3/uL (0.0-0.1) 03/06/23 06:28 Absolute Nucleated RBC 0.0 /100WBC 03/06/23 06:28 PT 31.6 SECONDS (11.8-14.3) 03/06/23 06:28 INR Target Range - 03/06/23 06: INR 3.11 (0.8-1.3) H 03/06/23 06:28 Sodium 142 mmol/L (136-145) 03/06/23 06:28 Corrected Sodium 143 mmol/L (136-145) 03/06/23 06: Potassium 3.9 mmol/L (3.5-5.1) 03/06/23 06:28 Chloride 109 mmol/L (98-107) H 03/06/23 06:28 Carbon Dioxide 23.8 mmol/L (21-32) 03/06/23 06:28 BUN 48 mg/dL (7-18) H 03/06/23 06:28 Creatinine 1.99 mg/dL (0.70-1.30) H 03/06/23 06:28 Est GFR (MDRD) Af Amer 42 (>60) L 03/06/23 06:28 Est GFR (MDRD) Non-Af 34 (>60) L 03/06/23 06:28 Glucose 160 mg/dL (65-99) H 03/06/23 06:28 POC Glucose (mg/dL) 153 mg/dL (65-99) H 03/06/23 10:39 Calcium 7.3 mg/dL (8.5-10.1) L 03/06/23 06:28 Corrected Calcium 8.5 mg/dL (8.5-10.1) 03/06/23 06:28 Magnesium 2.2 mg/dL (2.0-2.9) 03/03/23 10:27 Total Bilirubin 1.60 mg/dL (0.2-1.0) H 03/06/23 06:28 AST 32 Units/L (15-37) 03/06/23 06:28 ALT 26 Units/L (12-78) 03/06/23 06:28 Alkaline Phosphatase 54 Units/L (46-116) 03/06/23 06: Creatine Kinase 312 Units/L (39-308) H 03/03/23 10:27 Total Protein 5.1 g/dL (6.4-8.2) L 03/06/23 06:28 Albumin 2.5 g/dL (3.4-5.0) L 03/06/23 06:28 Globulin 2.6 g/dL (2.5-4.5) 03/06/23 06: Albumin/Globulin Ratio 1.0 Ratio (1.1-2.1) L 03/06/23 06:28 Specimen Type Clean catch urine 03/03/23 12:10 Urine Color Pale yellow (YELLOW) 03/03/23 12:10 Urine Appearance Slightly hazy (CLEAR) 03/03/23 12:10 Urine pH 5.0 (5.0 - 8.0) 03/03/23 12:10 Ur Specific [place] 1.020 (1.000-1.030) 03/03/23 12:10 Urine Protein 1+ (NEGATIVE) 03/03/23 12:10 Urine Glucose (UA) Negative (NEGATIVE) 03/03/23 12:10 Urine Ketones 1+ (NEGATIVE) 03/03/23 12:10 Urine Blood 4+ (NEGATIVE) 03/03/23 12:10 Urine Nitrite Negative (NEGATIVE) 03/03/23 12:10 Urine Bilirubin Negative (NEGATIVE) 03/03/23 12:10 Urine Urobilinogen Normal (NORMAL) 03/03/23 12:10 Ur Leukocyte Esterase 2+ (NEGATIVE) 03/03/23 12:10 Urine RBC None seen /HPF (0-3) 03/03/23 12:10 Urine WBC 0-2 /HPF (0-5) 03/03/23 12:10 Ur Squamous Epith Cells Rare /HPF (NEGATIVE) 03/03/23 12:10 Urine Bacteria 2+ /HPF (NEGATIVE) 03/03/23 12:10 Ur Culture Indicated? Yes/culture set up 03/03/23 12:10 Blood Type A POSITIVE 03/04/23 16:00 Blood Type A POSITIVE 03/04/23 16:00 Antibody Screen Positive 03/04/23 16:00 Antibody Identification Anti-K 03/04/23 16:00 Crossmatch See Detail 03/04/23 16:00 Plan (1) Dehydration: Status: Acute Narrative Support Text: Improving Plan: IV hydration. (2) CRF (chronic renal failure): Status: Acute Qualifiers: Chronic kidney disease stage: stage 3 (moderate) Chronic kidney disease stage 3 subtype: stage 3b (GFR 30-44) Qualified Code(s): N18.32 - Chronic kidney disease, stage 3b Narrative Support Text: Much improved Plan: Discontinue metformin at this time. (3) Coumadin toxicity: Status: Acute Qualifiers: Encounter type: initial encounter Injury intent: accidental or unintentional Qualified Code(s): T45.511A - Poisoning by anticoagulants, accidental (unintentional), initial encounter Narrative Support Text: Much improved. Plan: AquaMEPHYTON was given in the emergency department last night and since his INR was still greater than 10 today I gave him another 5 mg AquaM EPHYTON today. (4) Cystitis: Status: Acute Plan: IV Rocephin. Follow-up with culture when available. (5) Recurrent falls: Status: Acute Plan: Will start working on getting the patient into temporary rehab and physical therapy and able to get strong enough to go home. Patient refuses residential placement at this time. (6) Diabetes mellitus type 2 in nonobese: Status: Acute Plan: Sliding scale insulin per protocol. I will plan on starting the patient on glyburide 5 mg daily.
[2023-03-06 15:24] LABS: HEMATOCRIT 26.6 % (42.0-54.0); HEMOGLOBIN 9.4 g/dL (13.5-18.0)
[2023-03-06] MEDS ORDERED: SNACK - Diabetic Appropriate PO SCH (20:00)
[2023-03-06] MEDS: SNACK - Diabetic Appropriate PO SCH (20:35)
[2023-03-06] MEDS: COLACE CAP 100 MG PO SCH ×2 (20:35→20:37)
[2023-03-07] MEDS: NS 1,000 ML IV 1,000 ML IV SCH (00:03)
[2023-03-07 01:29] VITALS: RESP 20
[2023-03-07 06:17] LABS: BASOPHILS % (AUTO) 0.6 % (0.2-1.0); EOSINOPHILS # (AUTO) 0.2 x10^3/uL (0.0-0.2); HEMATOCRIT 26.1 % (42.0-54.0); HEMOGLOBIN 9.3 g/dL (13.5-18.0); LYMPHOCYTES # (AUTO) 0.9 X10^3/uL (1.3-2.9); LYMPHOCYTES % (AUTO) 15.1 % (21.0-51.0); MEAN CORPUSCULAR HEMOGLOBIN 31.3 pg (27.0-34.0); MEAN CORPUSCULAR HGB CONC 35.5 g/dL (33.0-35.0); MEAN CORPUSCULAR VOLUME 88.1 fL (80.0-100.0); MEAN PLATELET VOLUME 7.5 fL (7.4-11.0); MONOCYTES # (AUTO) 0.7 x10^3/uL (0.3-0.8); MONOCYTES % (AUTO) 10.6 % (0.0-13.0); NEUTROPHILS # (AUTO) 4.4 x10^3/uL (2.2-4.8); NEUTROPHILS % (AUTO) 70.7 % (42.0-75.0); PLATELET COUNT 241 X10^3/uL (150.0-450.0); RED BLOOD COUNT 2.96 X10^6/uL (4.7-6.0); RED CELL DISTRIBUTION WIDTH 16.3 % (11.6-16.5); WHITE BLOOD COUNT 6.2 X10^3/uL (3.6-10.0)
[2023-03-07 06:26] LABS: ALANINE AMINOTRANSFERASE 30 Units/L (12-78); ALBUMIN 2.7 g/dL (3.4-5.0); ALKALINE PHOSPHATASE 62 Units/L (46-116); ASPARTATE AMINO TRANSFERASE 35 Units/L (15-37); BLOOD UREA NITROGEN 32 mg/dL (7-18); CALCIUM 7.6 mg/dL (8.5-10.1); CARBON DIOXIDE 25.2 mmol/L (21-32); CHLORIDE 110 mmol/L (98-107); COR CA(FOR HYPOALB) 8.6 mg/dL (8.5-10.1); CREATININE 1.59 mg/dL (0.70-1.30); GLUCOSE 91 mg/dL (65-99); POTASSIUM 3.7 mmol/L (3.5-5.1); SODIUM 143 mmol/L (136-145); TOTAL PROTEIN 5.6 g/dL (6.4-8.2); eGFR NON BLACK RACES 45 (>60)
[2023-03-07] MEDS ORDERED: PHARMACY CONSULT - POTASSIUM & MAGNESIUM XX SCH (07:00)
[2023-03-07] MEDS ORDERED: K-DUR TAB 20 MEQ PO SCH (08:00)
[2023-03-07] MEDS: ROCEPHIN VIAL 1 GRAM 1 G in NS 100 ML IV 100 ML IV SCH (09:15)
[2023-03-07] MEDS: MICRO K EXTEN CAP 10 MEQ PO SCH (09:15)
[2023-03-07] MEDS: SYNTHROID 25 mcg TAB PO SCH (09:15)
[2023-03-07] MEDS: PROTONIX INJ 40 MG VIAL IVP SCH (09:16)
[2023-03-07] MEDS: DIABETA PO SCH (09:16)
[2023-03-07 09:48] VITALS: BP 173/84; PULSE 104; TEMP 98.5; O2SAT 90
== END 2023-03-07 10:05 | DRG 690 ==
LOC: ER 10:04 → MED/SURG 15:00
PROVIDERS: ADMIT Family Medicine; ATTEND Family Medicine